=== PATIENT | female | born 1970 | race American Indian/Alaskan Native ===

== ENCOUNTER 2019-05-16 06:51 | Day surgery (SDC) | payer BC ==
--- NOTE | 2019-05-16 07:42 | Anesthesia Consultation ---
Anesthesia Consult and Med Hx Date of service: 05/16/19 - Airway Anesthetic Teeth Evaluation: Good (uneven teeth) ROM Head & Neck: Adequate Mental/Hyoid Distance: Adequate Mallampati Class: Class II Intubation Access Assessment: Probably Good - Pre-Operative Health Status ASA Pre-Surgery Classification: ASA2 Proposed Anesthetic Plan: MAC - Cardiovascular System Hx Hypertension: No (elevated on admission) Hx Peripheral Vascular Disease: Yes (h/o DVT (2018)) - Gastrointestinal Hx Gastroesophageal Reflux Disease: Yes - Endocrine Hx Hypothyroidism: Yes - Additional Comments Anesthesia Medical History Comments: weight loss, h/o PONV
--- NOTE | 2019-05-16 07:43 | Anesthesia Day of Surgery ---
Anesthesia Day of Surgery - Day of Surgery Patient Examined: Yes Patient H&P Reviewed: Yes Patient is NPO: Yes
[2019-05-16] MEDS ORDERED: NACL 0.9% 1000 ML 1,000 ML ONE (07:50)
[2019-05-16] MEDS ORDERED: XYLOCAINE MPF 2% ONE (08:00)
[2019-05-16] MEDS ORDERED: DIPRIVAN 10 MG/ML IV ONE ×2 (08:23)
[2019-05-16] MEDS ORDERED: NACL 0.9% 1000 ML 1,000 ML IV SCH (09:00)
--- NOTE | 2019-05-16 09:11 | Procedure Note ---
Date of procedure: 05/16/19 Pre-op diagnosis: Weight Loss/ Changes in bowel Habit/ Peptic Ulcer disease Post-op diagnosis: other (Moderate, Erosive Eophagitis/ Gastric Erosion and Gastritis/R/O Ileitis/ R/O Microscopic colitis/ Minor,Internal Hemorrhoid) Procedure: EGD with Biopsy and Colonoscopy with Biopsy Anesthesia: GABRIELA Surgeon: SD ARAGON Estimated blood loss: minimal Pathology: list Specimen disposition: to lab Condition: stable Disposition: same day (Treat with PPI and OTC Probiotic. Avoid aspirin and NSAID and anticoagulants for 5 days. follow up in 1 to 2 weeks ([phone]).)
--- NOTE | 2019-05-16 09:13 | Operative Report ---
PROCEDURE: Esophagogastroduodenoscopy with biopsy. INDICATIONS: This is a 49-year-old -[place] female with an underlying history of hypothyroidism and prior history of a right leg DVT for which she had been on blood thinners and has since come off it. She has lately been complaining of some weight loss and GERD symptoms as well as changes in bowel habits. In addition, she has a history of hypothyroidism. EGD was done to make sure there was not any significant upper GI pathology present. DESCRIPTION OF PROCEDURE: The procedure was done after getting informed consent with MAC anesthesia. Instrument was passed through the hypopharynx into the esophagus, which showed mild to moderate distal erosive esophagitis. Biopsy was done from the distal esophagus. Stomach showed some antral erosion and gastritis. Biopsy was done from the gastric antrum, gastric body, and angularis incisura to rule out for H. pylori and atrophic gastritis. The pylorus is patent. The duodenum in the first and second portion appeared normal. ASSESSMENT: Gastroesophageal reflux disease symptoms, moderate distal erosive esophagitis, gastric erosion, gastritis. No peptic ulcer disease noted. Plan is to treat the patient with PPI, have the patient avoid aspirin and aspirin-related products for the next few days and to do a colonoscopy for further assessment. Follow up in the office in 1-2 weeks' time. The procedure was done in the GI lab with the assistance of anesthesia and in the presence of the GI lab team, which included FRANCOIS Soto and the GI fish hatchery laborer. Colonoscopy is to be done for further assessment of the changes in the patient's bowel habit. JOB# [id number] LEONOR/PANFILO
--- NOTE | 2019-05-16 09:17 | Operative Report ---
INDICATIONS: This is a 49-year-old -[place] female with an underlying history of hypothyroidism, prior history of a DVT involving the right leg for which she was on blood thinners and has since come off it. EGD was done because of GI symptoms that showed gastric erosion gastritis and moderate erosive esophagitis. Colonoscopy was done for further assessment of changes in her bowel habit and history of weight loss. DESCRIPTION OF PROCEDURE: The procedure was done after getting informed consent with MAC anesthesia. Initial rectal exam was unremarkable. Instrument was passed through the rectum into the cecum, which was identified with the ileocecal valve and the appendiceal orifice. Visualization was fair. There was a large amount of stool in certain parts of the colon that was washed with copious amounts of water. The terminal ileum was intubated showed normal mucosa. Biopsy was done to rule out for possible ileitis. Cecum, ascending colon, transverse colon, descending colon, and sigmoid showed normal mucosa. There was no evidence of any polyps, colitis or diverticular disease. Random biopsies done to rule out for possible microscopic colitis and the rectum showed some minor internal hemorrhoids on the retroverted view. There was minimal bleeding from the biopsy sites. No complications associated with the procedure. ASSESSMENT: Changes in bowel habit, history of weight loss, rule out microscopic colitis, rule out ileitis minor internal hemorrhoids. There was no evidence of any colon polyps or diverticular disease. PLAN: To wait for the biopsy results. Treat the patient empirically with probiotics and symptomatically treat constipation as needed. The patient may require blood work done to check her thyroid status if one has not been done recently. Also, the patient will be asked to avoid aspirin and aspirin-related products and follow up in the office in 1-2 weeks' time. The procedure was done with assistance of anesthesia and a GI lab team, which included FRANCOIS Whitmore and the GI lab rn. JOB# [id number] LEONOR/PANFILO
[2019-05-16 10:19] LABS: Free T4 (Free Thyroxine) 1.16 ng/dL (0.76-1.46)
[2019-05-16 10:42] VITALS: BP 154/92
== END 2019-05-16 06:52 | disposition home or self-care (01) ==
LOC: GIO 06:51
DX: K29.50 Unspecified chronic gastritis without bleeding (principal); K64.8 Other hemorrhoids; K21.0 Gastro-esophageal reflux disease with esophagitis; R19.4 Change in bowel habit; R63.4 Abnormal weight loss; R10.9 Unspecified abdominal pain; K31.89 Other diseases of stomach and duodenum; E03.9 Hypothyroidism, unspecified; I73.9 Peripheral vascular disease, unspecified; K63.89 Other specified diseases of intestine; Z88.5 Allergy status to narcotic agent; Z79.899 Other long term (current) drug therapy
CPT/HCPCS: 36415; 43239; 45380; 84439; 84443; 84481; 88305; 88312; 88342; J2704; J7030